=== PATIENT | female | born 1940 | race Caucasian/White ===

== ENCOUNTER 2024-06-11 10:27 | Day surgery (SDC) | payer MEDICARE, OTHER ==
[2024-06-11] VITALS (12 sets, daily range): BP systolic 135–155; BP diastolic 59–88; PULSE 63–89; RESP 8–21; TEMP 98.1; O2SAT 97–100
[~2024-06-11] VITALS: Ht 165.1 cm; Wt 60.5 kg
[~2024-06-11 10:27] MED LIST: AMLO5TAB16 PO; APIX5TAB3 PO; DENO60DI SUBCUT; EXEM25TA5 PO; METO50TA7 PO
[2024-06-11 11:23] LABS: BASOPHILS % (AUTO) 0.4 % (0-1); EOSINOPHILS # (AUTO) 0.1 X10'3 (0-0.9); EOSINOPHILS % (AUTO) 1.2 % (0-6); HEMATOCRIT 42.3 % (35.0-45.0); HEMOGLOBIN 13.8 g/dl (12.0-16.0); LYMPHOCYTES # (AUTO) 1.8 X10'3 (1.1-4.8); LYMPHOCYTES % (AUTO) 23.6 % (21-51); MEAN CORPUSCULAR HEMOGLOBIN 29.7 PG (27.0-31.0); MEAN CORPUSCULAR HGB CONC 32.6 g/dL (33.0-36.5); MEAN CORPUSCULAR VOLUME 90.9 FL (78-98); MEAN PLATELET VOLUME 7.8 FL (7.4-10.4); MONOCYTES # (AUTO) 0.6 X10'3 (0-0.9); NEUTROPHILS % (AUTO) 66.8 % (42-75); PLATELET COUNT 324 X10'3 (140-440); RED BLOOD COUNT 4.65 X10'6 (4.20-5.60); RED CELL DISTRIBUTION WIDTH 13.4 % (11.5-14.5); WHITE BLOOD COUNT 7.4 X10'3 (4.5-11.0)
[2024-06-11 11:37] LABS: APTT 27 SECONDS (22-32); PROTHROMBIN TIME 10.8 SECONDS (9.0-12.0)
[2024-06-11 11:39] LABS: ALBUMIN 3.9 G/DL (3.4-5.0); ANION GAP 7 (8-16); BLOOD UREA NITROGEN 12 MG/DL (7-18); BUN/CREATININE RATIO 20.3 (10.0-20.0); CALCIUM 8.8 MG/DL (8.5-10.1); CHLORIDE 105 MMOL/L (99-107); CREATININE 0.59 MG/DL (0.40-0.90); GLUCOSE 96 MG/DL (70-104); POTASSIUM 4.2 MMOL/L (3.5-5.1); SODIUM 140 MMOL/L (135-145); TOTAL CARBON DIOXIDE 28.3 MMOL/L (24-32); eCRCL 66 ML/MIN; eGFR > 90 ML/MIN
[2024-06-11] MEDS: MIDAZolam 1mg/ml 10ml vial IV ONE (13:11)
[2024-06-11] MEDS: fentaNYL/PF 50MCG/1 ML 2ML syringe IV ONE (13:11)
[2024-06-11] MEDS: normal saline 1000ml 1,000 ML IV SCH (13:12)
[2024-06-11] MEDS ORDERED: CLOP-32 PO (14:02)
[2024-06-11] MEDS ORDERED: ASPI-1265 PO (14:04)
== END 2024-06-11 14:40 | disposition home or self-care (01) ==
LOC: SSTAY O 10:27
PROVIDERS: ATTEND Student in an Organized Health Care Education/Training Program
DX: I48.0 Paroxysmal atrial fibrillation (principal); I10 Essential (primary) hypertension; E66.3 Overweight; F51.04 Psychophysiologic insomnia; Z85.3 Personal history of malignant neoplasm of breast; Z79.01 Long term (current) use of anticoagulants; Z79.899 Other long term (current) drug therapy; Z88.8 Allergy status to other drugs, medicaments and biological substances; Z82.49 Family history of ischemic heart disease and other diseases of the circulatory system; Z68.22 Body mass index [BMI] 22.0-22.9, adult
CPT/HCPCS: 36415; 80048; 85025; 85610; 85730; 93325; 94760; C8925; J2250; J3010; J7030; 93312